=== PATIENT | female | born 1970 | race Caucasian/White ===

== ENCOUNTER 2016-07-04 10:05 | Emergency (ER) | payer OTHER ==
[2016-07-04] MEDS ORDERED: VANCOMYCIN 1,000 MG in SODIUM CHLORIDE 0.9% IRRIGATIO 1,000 ML IRRIGATION ONE (10:25)
[2016-07-04] MEDS ORDERED: KETOROLAC 60 MG/2 ML VIAL IVP STA (10:27)
[2016-07-04] MEDS ORDERED: ACETAMINOPHEN IV (For NPO) 1,000 MG in SALINE 100 100ML.BAG IVPB STA (10:27)
[2016-07-04] MEDS ORDERED: VANCOMYCIN 1,000 MG in SODIUM CHLORIDE 0.9% 250 ML IV ONE (10:30)
--- NOTE | 2016-07-04 10:30 | ED ---
General Adult HPI - General Chief complaint: Skin/Abscess/Foreign Body Stated complaint: abscess left arm Time Seen by Provider: 07/04/16 10:05 Source: patient, RN notes reviewed Mode of arrival: ambulatory Limitations: no limitations - History of Present Illness Initial comments: This is a 45-year-old female who presents emergency Department with a past medical history significant for heroin abuse. Patient states she's in rehabilitation since Saturday. Patient states the last few days she's had this abscess on her left arm just above the antecubital fossa and is getting bigger and it is extremely painful in the area around it is red and hot. Patient denies any fever patient denies any drainage. Patient denies any other abscesses in her body at this time. Patient denies any other pain she denies chest pain, short of breath and patient denies any abdominal pain she denies any nausea vomiting diarrhea. - Related Data Home Medications Medication Instructions Recorded Confirmed Acetaminophen [Tylenol 8 Hour] 650 mg PO Q4H PRN MDD 6 TABS/24 07/04/16 07/04/16 HOURS Buprenorphine 4mg/Sl 4 mg SUBLINGUAL DIRECTED 07/04/16 07/04/16 Calcium 1000mg/Magnesium 500mg 1 tab PO TID PRN 07/04/16 07/04/16 Chlorpheniramine Maleate 4 mg PO Q4HR PRN MDD 4 DOSES/24HRS 07/04/16 07/04/16 [Chlor-Trimeton] Hyoscyamine Sulfate [Levsin-Sl] 0.125 mg SUBLINGUAL QID PRN 07/04/16 07/04/16 Ibuprofen [Motrin] 600 mg PO Q6HR PRN 07/04/16 07/04/16 Loperamide [Imodium] 4 mg PO QID PRN 07/04/16 07/04/16 Multivitamins, Thera [Multivitamin] 1 tab PO DAILY 07/04/16 07/04/16 Ondansetron HCl [Zofran] 8 mg PO Q6H PRN 07/04/16 07/04/16 Ondansetron [Zofran] 4 mg IM Q6H PRN 07/04/16 07/04/16 Trimethobenzamide [Tigan] 200 mg IM Q6HR PRN 07/04/16 07/04/16 Trimethobenzamide [Tigan] 300 mg PO Q6H PRN 07/04/16 07/04/16 cloNIDine HCL [Catapres] 0.1 mg PO Q4H PRN 07/04/16 07/04/16 traZODone HCL 50 - 150 mg PO HS 07/04/16 07/04/16 Allergies Allergy/AdvReac Type Severity Reaction Status Date / Time No Known Allergies Allergy Verified 07/04/16 10:24 Review of Systems ROS Statement: Those systems with pertinent positive or pertinent negative responses have been documented in the HPI. ROS Other: All systems not noted in ROS Statement are negative. Past Medical History Past Medical History: No Reported History History of Any Multi-Drug Resistant Organisms: None Reported Past Surgical History: No Surgical Hx Reported Past Psychological History: No Psychological Hx Reported Smoking Status: Current every day smoker Past Alcohol Use History: None Reported, Abuse, Heavy Past Drug Use History: None Reported, Heroin General Exam - General Exam Comments Initial Comments: GENERAL Patient is well-developed and well-nourished. Patient is in mild distress. EYES Patient's pupils are equal and round. Extraocular motion is intact SKIN There is a large abscess on the distal aspect of the left arm just above the antecubital fossa NEURO The patient is alert and oriented 3 PYSCH Patient has normal interpersonal interactions. MUSCULOSKELETAL Patient is limited range of motion about the left elbow secondary to the large abscess described above Limitations: no limitations Course Vital Signs 07/04/16 07/04/16 07/04/16 10:12 11:57 12:38 Temperature 97.9 F 97.5 F L Pulse Rate 84 72 65 Respiratory 20 14 18 Rate Blood Pressure 125/82 118/78 102/63 O2 Sat by Pulse 98 99 100 Oximetry Procedures - Incision & Drainage Consent Obtained: verbal consent Time Out Performed?: Yes Indication: Large abscess Site: upper extremity Anesthetic Used: lidocaine 1% I&D Cleaning Method: Betadine Scalpel Used: #11 Needle Aspiration Performed?: No Irrigation Performed?: No I&D Drainage Obtained: Pus, Blood Culture Obtained?: Yes Complications: pain Patient Tolerated Procedure: well Medical Decision Making - Medical Decision Making I denied giving the abscess and I sent cultures. I gave the patient vancomycin. I spoke with Dr. Santana except the patient I wrote admitting orders. After I admitted the patient to this hospital the insurance company would not approve it so she had to be transferred to [facility]. I spoke with [facility] and they transferred to [facility]. - Lab Data Result diagrams: 07/04/16 11:00 07/04/16 11:00 Lab Results 07/04/16 07/04/16 07/04/16 Range/Units 11:00 11:00 11:00 WBC 6.9 (3.8-10.6) k/uL RBC 4.20 (3.80-5.40) m/uL Hgb 13.8 (11.4-16.0) gm/dL Hct 41.1 (34.0-46.0) % MCV 97.6 (80.0-100.0) fL MCH 32.8 (25.0-35.0) pg MCHC 33.6 (31.0-37.0) g/dL RDW 12.7 (11.5-15.5) % Plt Count 129 L (150-450) k/uL Neutrophils % 67 % Lymphocytes % 21 % Monocytes % 8 % Eosinophils % 1 % Basophils % 1 % Neutrophils # 4.7 (1.3-7.7) k/uL Lymphocytes # 1.5 (1.0-4.8) k/uL Monocytes # 0.5 (0-1.0) k/uL Eosinophils # 0.0 (0-0.7) k/uL Basophils # 0.1 (0-0.2) k/uL Sodium 137 (137-145) mmol/L Potassium 5.1 (3.5-5.1) mmol/L Chloride 103 (98-107) mmol/L Carbon Dioxide 25 (22-30) mmol/L Anion Gap 9 mmol/L BUN 13 (7-17) mg/dL Creatinine 0.68 (0.52-1.04) mg/dL Est GFR (MDRD) Af Amer >60 (>60 ml/min/1.73 sqM) Est GFR (MDRD) Non-Af >60 (>60 ml/min/1.73 sqM) Glucose 116 H (74-99) mg/dL Plasma Lactic Acid Mynor 0.8 (0.7-2.0) mmol/L Calcium 9.0 (8.4-10.2) mg/dL Total Bilirubin 0.7 (0.2-1.3) mg/dL AST 89 H (14-36) U/L ALT 85 H (9-52) U/L Alkaline Phosphatase 77 (38-126) U/L Total Protein 7.3 (6.3-8.2) g/dL Albumin 3.5 (3.5-5.0) g/dL Disposition Clinical Impression: Cellulitis and abscess of upper arm and forearm, IV drug abuse Disposition: OTHER INSTITUTION NOT DEFINED Referrals: None,Stated [Primary Care Provider] - 1-2 days Time of Disposition: 12:17 - Out of Hospital Transfer - Req. Specs Out of Hospital Transfer - Requested Specifics: Other Emergency Center ([facility])
[2016-07-04] MEDS ORDERED: KETOROLAC 30 MG/ML 1 ML VIAL IVP STA (11:03)
[2016-07-04 11:26] LABS: Basophils # (A) 0.1 k/uL (0-0.2); Basophils % (A) 1 %; CH 32.9; CHCM 33.8; Eosinophils % (A) 1 %; HCT 41.1 % (34.0-46.0); HDW 2.16; HGB 13.8 gm/dL (11.4-16.0); Luc # (Auto) 0.16; Luc % (Auto) 2; Lymphocytes # (A) 1.5 k/uL (1.0-4.8); Lymphocytes % (A) 21 %; MCH 32.8 pg (25.0-35.0); MCHC 33.6 g/dL (31.0-37.0); MCV 97.6 fL (80.0-100.0); Mean Platelet Volume 8.5; Monocytes # (A) 0.5 k/uL (0-1.0); Monocytes % (A) 8 %; Neutrophils # (A) 4.7 k/uL (1.3-7.7); Neutrophils % (A) 67 %; RDW 12.7 % (11.5-15.5); WBC 6.9 k/uL (3.8-10.6); WBC (Perox) 6.48
[2016-07-04 11:40] LABS: ALT 85 U/L (9-52); AST 89 U/L (14-36); Alkaline Phosphatase 77 U/L (38-126); Anion Gap 9 mmol/L; Blood Urea Nitrogen 13 mg/dL (7-17); Carbon Dioxide 25 mmol/L (22-30); Chloride 103 mmol/L (98-107); Glucose 116 mg/dL (74-99); Non-African American GFR(MDRD) >60 (>60 ml/min/1.73 sqM); Sodium 137 mmol/L (137-145); Total Bilirubin 0.7 mg/dL (0.2-1.3); Total Protein 7.3 g/dL (6.3-8.2)
[2016-07-04 11:48] LABS: Potassium 5.1 mmol/L (3.5-5.1)
[2016-07-04] MEDS ORDERED: SODIUM CHLORIDE 0.9% 1,000 ML IV ONE (12:17)
[2016-07-04] MEDS ORDERED: IV VANCOMYCIN PER PHARMACY 1 EACH MISC MISCELLANE PRN ×2 (12:18→12:58)
[2016-07-04] MEDS ORDERED: ACETAMINOPHEN TAB 325 MG TAB PO PRN (12:19)
[2016-07-04 14:50] VITALS: BP 128/82; PULSE 75; RESP 14; TEMP 100
[2016-07-04] MEDS ORDERED: KETOROLAC 30 MG/ML 1 ML VIAL IVP SCH (18:00)
[2016-07-04] MEDS ORDERED: VANCOMYCIN 1,250 MG in SODIUM CHLORIDE 0.9% 250 ML IVPB SCH (21:00)
== END 2016-07-04 14:55 | disposition short-term general hospital (02) ==
LOC: EC 10:05
DX: L03.114 Cellulitis of left upper limb (principal); F19.10 Other psychoactive substance abuse, uncomplicated; F17.200 Nicotine dependence, unspecified, uncomplicated; Z79.899 Other long term (current) drug therapy
CPT/HCPCS: 99284; 10060; 96365; 96366 ×2; 96375 ×2; 36415; 80053; 83605; 85025; 87040; 87070; 87205; 87077; 87186; J3370; J1885; J0131